=== PATIENT | female | born 1995 | race Caucasian/White ===

== ENCOUNTER 2017-06-25 19:55 | Emergency (ER) | payer BC ==
[2017-06-25] MEDS ORDERED: Ketorolac INJ* 30 MG/ML 1 ML VIAL IV ONE (20:33)
[2017-06-25] MEDS ORDERED: Cyclobenzaprine TAB* 10 MG PO ONE ×2 (20:36→23:56)
[2017-06-25] MEDS ORDERED: NS 0.9% 1000 ML* 1,000 ML IV SCH (20:45)
--- NOTE | 2017-06-25 21:02 | RAD ---
HISTORY: Low back pain, trauma COMPARISONS: None TECHNIQUE: Multiple contiguous axial CT scans were obtained of the lumbar spine without intravenous contrast, with coronal and sagittal multiplanar reformations. FINDINGS: There is a transitional last lumbar type vertebral body which will be labeled S1 for the purposes of counting. SPINAL CANAL: Evaluation of the central canal is limited on CT technique; however, there is no obvious canalicular mass or epidural hemorrhage. ALIGNMENT: The alignment is normal. VERTEBRAL BODIES: There is partial sacralization of the S1 vertebral body. Incidentally noted is a small accessory ribs L1 on the right. There is no displaced fracture. The vertebral bodies preserved in height. JOINTS: There is no subluxation or dislocation. MUSCULATURE: Unremarkable INTERVERTEBRAL DISCS: There is mild diffuse loss of intervertebral disc height throughout the spine. AXIAL IMAGES: T12-L1: There is no osseous neural foraminal narrowing or central canal stenosis. L1-L2: There is no osseous neural foraminal narrowing or central canal stenosis. L2-L3: There is no osseous neural foraminal narrowing or central canal stenosis. L3-L4: There is a mild disc bulge. There is no significant neural foraminal narrowing or central canal stenosis. L4-L5: There is a broad-based disc bulge. There is no significant neural foraminal narrowing or central canal stenosis. L5-S1: There is a broad-based left lateral recess disc protrusion measuring 0.6 cm in depth. There is no osseous neural foraminal narrowing or central canal stenosis. SOFT TISSUES: The visualized soft tissues of the abdomen are unremarkable. OTHER: None IMPRESSION: DEGENERATIVE DISC DISEASE WITH A LEFT-SIDED DISC PROTRUSION AT L5-S1. THERE IS NO OSSEOUS NEURAL FORAMINAL NARROWING OR CENTRAL CANAL STENOSIS.
[2017-06-25] MEDS ORDERED: Morphine INJ* 4 MG/ML 1 ML CARPUJECT IV ONE (22:49)
[2017-06-25] MEDS ORDERED: oxyCODONE/Acetamin 5/325 MG* TAB PO ONE (23:56)
--- NOTE | 2017-06-26 00:02 | ED ---
Edwin Curran Benjamin, scribed for Joe Roe MD on 06/25/17 at 2050 . Back Pain - HPI Summary HPI Summary: 22yo female presents to ED after injuring her lower back during her workout exercise. Pt was doing lifting exercise, and when she tried to lift her left leg, pt experienced sudden spasms in her left lower back. Pt has hx of bulged disks in the past. Pt had a MRI taken in May that showed a new bulged disk. - History of Current Complaint Chief Complaint: EDBackInjuryPain Stated Complaint: BACK PAIN Time Seen by Provider: 06/25/17 20:24 Hx Obtained From: Patient Onset/Duration: Sudden Onset, Lasting Minutes Onset/Duration: Started Hours Ago Timing: Constant Back Pain Location: Is Discrete @ - lower left back, Radiates To - LLE Severity Initially: Moderate Severity Currently: Moderate Pain Intensity: 8 Pain Scale Used: 0-10 Numeric Character: Spasmodic Aggravating Symptom(s): Movement Alleviating Symptom(s): Rest Associated Signs And Symptoms: Positive: Tingling - LLE. Negative: Bladder Incontinence, Bowel Incontinence - Allergies/Home Medications Allergies/Adverse Reactions: Allergies Allergy/AdvReac Type Severity Reaction Status Date / Time No Known Allergies Allergy Verified 08/12/16 21:26 PMH/Surg Hx/FS Hx/Imm Hx Endocrine/Hematology History: Denies: Hx Diabetes Cardiovascular History: Denies: Hx Hypertension, Hx Pacemaker/ICD History: Denies: Hx Renal Disease Musculoskeletal History: Reports: Hx Back Problems - bulged disks Sensory History: Denies: Hx Hearing Aid Psychiatric History: Denies: Hx Panic Disorder Infectious Disease History: No Infectious Disease History: Denies: Traveled Outside the [place] in Last 30 Days - Family History Known Family History: Negative: Cardiac Disease - Social History Alcohol Use: Occasionally Hx Substance Use: No Substance Use Type: Reports: None Hx Tobacco Use: No Smoking Status (MU): Never Smoked Tobacco Review of Systems Constitutional: Negative Eyes: Negative Positive: Other - dental fx Cardiovascular: Negative Respiratory: Negative Gastrointestinal: Negative Genitourinary: Negative Positive: no symptoms reported Positive: Myalgia - lower back pain Positive: Other - chin laceration Neurological: Negative Psychological: Normal All Other Systems Reviewed And Are Negative: Yes Physical Exam Triage Information Reviewed: Yes Vital Signs On Initial Exam: Initial Vitals Temp Pulse Resp BP Pulse Ox 98.5 F 52 16 129/64 100 06/25/17 19:59 06/25/17 19:59 06/25/17 19:59 06/25/17 19:59 06/25/17 19:59 Vital Signs Reviewed: Yes Appearance: Positive: Well-Appearing, No Pain Distress, Well-Nourished Skin: Positive: Warm, Skin Color Reflects Adequate Perfusion, Dry Head/Face: Positive: Normal Head/Face Inspection Eyes: Positive: EOMI, SUZE ENT: Positive: Normal ENT inspection, Hearing grossly normal Neck: Positive: Supple, Nontender Cardiovascular: Positive: RRR, Pulses are Symmetrical in both Upper and Lower Extremities Abdomen Description: Positive: Nontender, Soft Bowel Sounds: Positive: Present Musculoskeletal: Positive: Strength/ROM Intact, Pain @ - Left lower back pain that radiates down to her left leg. No urinary or bowel incontinence., Other - Full ROM with both of her legs, normal plantar and dorso flex, normal flexion and extension of both knees and hips. No sensory deficits. Left lower back pain that radiates down to her left leg. No urinary or bowel incontinence. Neurological: Positive: Sensory/Motor Intact, Alert, Oriented to Person Place, Time Psychiatric: Positive: Affect/Mood Appropriate Diagnostics - Vital Signs Vital Signs Temp Pulse Resp BP Pulse Ox 06/25/17 19:59 98.5 F 52 16 129/64 100 - Laboratory Lab Statement: Any lab studies that have been ordered have been reviewed, and results considered in the medical decision making process. - CT L-spine CT CT Interpretation: Positive (See Comments) - IMPRESSION: DEGENERATIVE DISC DISEASE WITH A LEFT-SIDED DISC PROTRUSION AT L5-S1. THERE IS NO OSSEOUS NEURAL FORAMINAL NARROWING OR CENTRAL CANAL STENOSIS. CT Interpretation Completed By: Radiologist - ED physician has reviewed this radiology report and agrees. Re-Evaluation - Re-Evaluation First Eval Re-Evaluation Time: 22:28 Comment: Reviewed pts imaging result with the pt. Also discussed course of treatment and disposition, as well as follow up plans. Back Pain Course/Dx - Course Course Of Treatment: Reviewed pts medication and allergy lists. Blood pressure noted. DISCUSSED RESULTS WITH PATIENT. NO NEUROLOGIC DEFICIT IN ED. WILL F/U WITH [facility]. - Diagnoses Provider Diagnoses: Low back pain, Lumbar radiculopathy, Lumbar disc herniation Discharge - Discharge Plan Condition: Stable Disposition: HOME Patient Education Materials: Lumbar Disc Herniation (ED), Acute Low Back Pain ( ED) Referrals: [facility] [Provider Group] Non Staff,Doctor [Primary Care Provider] - Additional Instructions: FOLLOW UP WITH [facility]. RETURN TO THE EMERGENCY DEPARTMENT FOR ANY WORSENING OF YOUR CONDITION; WEAKNESS , NUMBNESS, DIFFICULTY CONTROLLING BOWEL OR BLADDER OR QUESTIONS OR CONCERNS. The documentation as recorded by the Edwin olsen Benjamin accurately reflects the service I personally performed and the decisions made by , Joe Roe MD.
[2017-06-26 00:35] VITALS: BP 122/72
== END 2017-06-26 00:33 | disposition home or self-care (01) ==
LOC: ED 19:55
DX: M54.5 Low back pain (principal); M54.16 Radiculopathy, lumbar region; M51.26 Other intervertebral disc displacement, lumbar region; M51.36 Other intervertebral disc degeneration, lumbar region
CPT/HCPCS: 72131; 99283; A9270-GY; J1885; J2270